=== PATIENT | male | born 1975 | race Caucasian/White ===

== ENCOUNTER 2017-02-03 18:21 | Emergency (ER) | payer MEDICAID ==
[~2017-02-03] VITALS: Ht 172.7 cm; Wt 122.7 kg
[~2017-02-03 18:21] MED LIST: DOXYCYCLINE 10100 MG PO; GLUCOPHAGE500 MG/TAB PO; JANUMET 500 MG-1 TA1; NO HOME MEDICATIONS; NORCO 325 MG-51 TAB PO; NOVOLOG 100U100 U/M1 SC; PRINIVIL2.5 MG PO; ZOCOR5 MG PO
[2017-02-03 18:28] VITALS: BP 130/71; PULSE 113; TEMP 98.6
[2017-02-03] MEDS ORDERED: PRINIVIL20 MG PO (18:48)
[2017-02-03] MEDS ORDERED: BACTRIM DS 8001 TAB PO (19:01)
== END 2017-02-03 19:14 | disposition home or self-care (01) ==
LOC: COL.ER 18:21
DX: L02.416 Cutaneous abscess of left lower limb (principal); E11.9 Type 2 diabetes mellitus without complications; Z79.4 Long term (current) use of insulin

== ENCOUNTER 2019-04-20 10:28 | Emergency (ER) | payer MEDICAID ==
[~2019-04-20] VITALS: Ht 172.7 cm; Wt 118.2 kg
[~2019-04-20 10:28] MED LIST changes: +BACTRIM DS 8001 TAB PO; +PRINIVIL20 MG PO
[2019-04-20 10:36] VITALS: BP 132/92; TEMP 98.1
[2019-04-20] MEDS ORDERED: NORCO 325 MG-51 TAB PO (11:38)
[2019-04-20 11:55] VITALS: PULSE 83
== END 2019-04-20 11:55 | disposition home or self-care (01) ==
LOC: COL.ER 10:28
DX: M25.561 Pain in right knee (principal); G89.29 Other chronic pain; F32.9 Major depressive disorder, single episode, unspecified; F41.9 Anxiety disorder, unspecified; E11.9 Type 2 diabetes mellitus without complications; F17.210 Nicotine dependence, cigarettes, uncomplicated
CPT/HCPCS: J1885

== ENCOUNTER 2020-02-03 13:55 | Observation (INO) | payer MEDICAID ==
--- NOTE | 2020-02-03 15:15 | NUR ---
PT CONSENT OBTAINED, BLOOD SUGAR TAKEN, PT CONFIRMED NKA, NO HOME MEDS, PT FLUIDS HUNG PER PRE OP ORDER, NEW PT BRACELET PLACED ON PT. PT AOX4, PT REPORTS NO SOA OR DISCOMFORT AT THIS TIME. PT TAKEN DOWN FOR EGD NOW VIA BED. NO OTHER NEEDS AT THIS TIME.
[2020-02-03 16:20] VITALS: BP 121/44; PULSE 89
--- NOTE | 2020-02-03 16:27 | NUR ---
PT ARRIVED TO FLOOR HOOKED UP TO VITAL SIGNS, PT DENIES PAIN AT THIS TIME
[2020-02-03 16:35] VITALS: BP 123/83; PULSE 85
--- NOTE | 2020-02-03 16:45 | NUR ---
PT REPORTED URINATING. DRINK AND FOOD BROUGHT IN FOR PT TO EAT.
[2020-02-03 16:50] VITALS: BP 117/86; PULSE 80
--- NOTE | 2020-02-03 17:19 | NUR ---
discharge education given, iv dc'd, pt escorted out.
== END 2020-02-03 17:20 | disposition home or self-care (01) ==
LOC: MEDICAL 13:55
PROVIDERS: ADMIT Internal Medicine Gastroenterology
DX: T18.8XXA Foreign body in other parts of alimentary tract, initial encounter (principal); K31.89 Other diseases of stomach and duodenum; K57.92 Diverticulitis of intestine, part unspecified, without perforation or abscess without bleeding; G47.33 Obstructive sleep apnea (adult) (pediatric); E66.9 Obesity, unspecified
CPT/HCPCS: J2250; J2704

== ENCOUNTER 2022-01-31 12:26 | Observation (INO) | payer MEDICAID ==
[~2022-01-31] VITALS: Ht 172.7 cm; Wt 125.0 kg
[2022-01-31 13:17] LABS: BASO # 0.1 K/mm3 (0.0-0.2); BASO % 0.4 % (0.0-2.0); EOS # 0.3 K/mm3 (0.0-0.7); EOS % 1.9 % (0.0-4.0); HEMATOCRIT 37.1 % (42.0-52.0); HEMOGLOBIN 12.7 g/dl (13.5-18.0); LYMPH % 28.7 % (20.0-51.0); MEAN CELL VOLUME 88 fl (80.0-100.0); MEAN CORPUSCULAR HEMOGLOBIN 30 pg (27-31); MEAN CORPUSCULAR HGB CONC 34 g/dl (33.0-37.0); MEAN PLATELET VOLUME 9.2 fl (7.4-10.4); MONO # 1.5 K/mm3 (0.1-0.6); MONO % 10.6 % (1.7-9.3); PLATELET COUNT 352 K/mm3 (130-400); RED BLOOD COUNT 4.24 M/mm3 (4.20-5.60); REDCELL DISTRIBUTION WIDTH-CV 14.7 % (11.5-14.5)
[2022-01-31 13:31] LABS: ALBUMIN 3.2 gm/dL (3.5-5.0); CALCIUM 9.1 mg/dL (8.4-10.2); CREATININE, serum 0.78 mg/dL (0.72-1.25); POTASSIUM 4.4 mmol/L (3.5-4.5); TOTAL PROTEIN 7.1 gm/dL (6.2-8.1)
[2022-01-31 13:41] LABS: BILIRUBIN,TOTAL 0.3 mg/dL (0.2-1.2)
[2022-01-31] MEDS ORDERED: BACTRIM DS 8001 TAB PO (17:17)
[2022-01-31] MEDS ORDERED: ROXICODONE 55 MG/TAB PO (17:17)
[2022-01-31 18:04] VITALS: BP 130/83; PULSE 83; TEMP 98.6
[2022-01-31 18:18] VITALS: BP 124/79; PULSE 80; TEMP 98.6
[2022-01-31 18:34] VITALS: BP 122/65; BP 126/80; PULSE 84
--- NOTE | 2022-01-31 18:35 | NUR ---
PT RECEIVED FROM THE OR POST IND GROIN ABSCESS, VSS, ORIENT AND ALERT X4, DENIES ACOMPLAINTS OF PAIN, IV NORMAL SALINE RUNNING. PT STATES HE WANTS TO GO HOME SOON POSSIBLE. DISCHARGE SUMMARY ALREADY WRITTEN.
[2022-01-31 18:49] VITALS: BP 126/80; PULSE 84; TEMP 98.6
--- NOTE | 2022-01-31 19:50 | NUR ---
DISCHARGE PAPERWORK AND INSTRUCTIONS REVIEW WITH PT BY JUAN RN. ALL QUESTIONS AND CONCERNS ADDRESSED AT THIS TIME. VSS. IV TO LEFT HAND REMOVED WITH CATHETER TIP INTACT. PT WALKED OUT OF FACILITY BY AID TO PT'S WAITING FAMILY.
== END 2022-01-31 19:50 | disposition home or self-care (01) ==
LOC: COL.ER 12:26 → MEDICAL 14:56 → EDBEDREQTM 15:30 → MEDICAL 16:19
PROVIDERS: Emergency Medicine; ADMIT Urology
DX: N49.2 Inflammatory disorders of scrotum (principal); L02.215 Cutaneous abscess of perineum; F17.210 Nicotine dependence, cigarettes, uncomplicated; Z28.310 Unvaccinated for COVID-19; Z28.9 Immunization not carried out for unspecified reason; E11.9 Type 2 diabetes mellitus without complications
CPT/HCPCS: G0378; J2270; J2405; J2543; J2704; J3010; J7030; Q9967

== ENCOUNTER 2023-06-25 14:38 | Emergency (ER) | payer MEDICAID ==
[~2023-06-25] VITALS: Ht 172.7 cm; Wt 104.5 kg
[~2023-06-25 14:38] MED LIST changes: +ROXICODONE 55 MG/TAB PO
[2023-06-25 14:59] VITALS: TEMP 97.9
[2023-06-25] MEDS ORDERED: ROXICODONE 55 MG/TAB PO (17:29)
[2023-06-25 17:35] VITALS: BP 138/92; PULSE 90
== END 2023-06-25 17:43 | disposition home or self-care (01) ==
LOC: COL.ER 14:38
DX: S22.31XA Fracture of one rib, right side, initial encounter for closed fracture (principal); S22.32XD Fracture of one rib, left side, subsequent encounter for fracture with routine healing; F17.210 Nicotine dependence, cigarettes, uncomplicated; X58.XXXA Exposure to other specified factors, initial encounter
CPT/HCPCS: A9284; J1885